=== PATIENT | male | born 1995 | race Caucasian/White ===

== ENCOUNTER 2019-08-16 10:39 | Emergency (ER) | payer SELFPAY ==
--- NOTE | 2019-08-16 10:44 | PDOC ---
History of Present Illness - General Chief Complaint: Cold Symptoms Stated Complaint: FLU,PINK EYE Time Seen by Provider: 08/16/19 10:40 History Source: Patient Exam Limitations: No Limitations - History of Present Illness Initial Comments: 08/16/19 10:41 23 y/o male with flu like symptoms that started yesterday. Took Motrin earlier today. No cough. No traveling. Child with same symptoms last week. No N/V/d/c. No SOB or chest pain. Fever and body aches. Also with eye discharge. Is this a multiple visit Asthma Patient?: No Past History - Travel Traveled outside of the country in the last 30 days: No - Past Medical History Allergies/Adverse Reactions: Allergies Allergy/AdvReac Type Severity Reaction Status Date / Time No Known Allergies Allergy Verified 08/16/19 10:41 Home Medications: Ambulatory Orders Ibuprofen [Motrin -] 400 mg PO PRN PRN 08/16/19 Oseltamivir Phosphate [Tamiflu -] 75 mg PO BID #10 capsule 08/16/19 Tobramycin/Dexamethasone [Tobradex Eye Drops] 1 drop OP QID 5 Days #5 drops.susp 08/16/19 Review of Systems - Review of Systems Able to Perform ROS?: Yes Is the patient limited Indonesian proficient: No Constitutional: Yes: Symptoms Reported, Chills, Fever HEENTM: No: Throat Pain Respiratory: No: Cough, Shortness of Breath Cardiac (ROS): No: Chest Pain Musculoskeletal: No: Back Pain All Other Systems: Reviewed and Negative *Physical Exam - Physical Exam General Appearance: Yes: Nourished, Appropriately Dressed. No: Apparent Distress HEENT: positive: EOMI, [place], Normal ENT Inspection, Normal Voice, Symmetrical, Pharynx Normal. negative: Scleral Icterus (R), Scleral Icterus (L) (eyes injected b/l, no discharge noted) Neck: positive: Trachea midline, Normal Thyroid, Supple. negative: Tender, Rigid, Carotid bruit Respiratory/Chest: positive: Lungs Clear, Normal Breath Sounds. negative: Chest Tender, Respiratory Distress Cardiovascular: positive: Regular Rhythm, Regular Rate, S1, S2. negative: Edema , JVD, Murmur Vascular Pulses: Femoral (R): 4+, Femoral (L): 4+, Carotid (R): 4+, Carotid (L) : 4+, Dorsalis-Pedis (R): 4+, Doralis-Pedis (L): 4+ Gastrointestinal/Abdominal: positive: Normal Bowel Sounds, Flat, Soft. negative : Tender, Organomegaly, Pulsatile Mass Lymphatic: negative: Adenopathy, Tenderness, Other Musculoskeletal: positive: Normal Inspection. negative: CVA Tenderness Extremity: positive: Normal Capillary Refill, Normal Inspection, Normal Range of Motion Integumentary: positive: Normal Color, Dry, Warm Neurologic: positive: lineman II-XII NML intact, Fully Oriented, Alert, Normal Mood/ Affect, Normal Response, Motor Strength 11/16 ED Treatment Course - RADIOLOGY Radiology Studies Ordered: 08/16/19 10:44 Pt with b/l conjunctivitis and FLU like symptoms Will start Tamiflu and Tobradx Pt is in agreement with plan Discharge - Discharge Information Problems reviewed: Yes Clinical Impression/Diagnosis: Influenza Conjunctivitis Qualifiers: Conjunctivitis type: acute Acute conjunctivitis type: unspecified Laterality: bilateral Qualified Code(s): H10.33 - Unspecified acute conjunctivitis, bilateral Condition: Good Disposition: HOME - Admission No - Follow up/Referral - Patient Discharge Instructions Patient Printed Discharge Instructions: DI for Conjunctivitis, DI for Common Cold Additional Instructions: Fluids, rest, Motrin Tobradex eye drops 1 drop both eyes 4x/day for 5 days Tamiflu 75 mg 2x/day for 5 days If worsen return to ER - Post Discharge Activity
[2019-08-16 11:12] VITALS: BP 132/86; PULSE 90; TEMP 98.5; BMI 33.0
== END 2019-08-16 11:17 | disposition home or self-care (01) ==
LOC: FER 10:39
DX: J11.1 Influenza due to unidentified influenza virus with other respiratory manifestations (principal); H10.33 Unspecified acute conjunctivitis, bilateral
CPT/HCPCS: 99281-25